=== PATIENT | male | born 1980 | race Caucasian/White ===

== ENCOUNTER 2017-04-22 10:39 | Emergency (ER) | payer OTHER ==
[2017-04-22 10:39] VITALS: BMI 42.3
[2017-04-22 10:45] VITALS: RESP 16; TEMP 99.1
[2017-04-22] MEDS ORDERED: Oxycodone/Acetaminophen 5/325 mg Tab PO STA (11:29)
--- NOTE | 2017-04-22 12:05 | ED PDOC ---
Arrival/HPI - General Chief Complaint: Back Pain Time Seen by Provider: 04/22/17 11:29 Historian: Patient - History of Present Illness Narrative History of Present Illness (Text): 04/22/17 12:09 36-year-old male presents today with low back pain status post injury. Patient states he was helping his sister move and he was carrying a heavy dresser and the person who was helping him carry slipped and he took all of the weight of the dresser. Patient describes a pulling sensation in the right flank radiating across the low back. He denies bladder or bowel incontinence. Patient rates the pain as an 8 out of 10. Patient states he took Flexeril and Motrin yesterday without improvement. He denies numbness weakness or tingling in the lower extremities. He denies fevers or chills. No abdominal pain. No nausea or vomiting. Denies dysuria or urinary frequency. No other complaints Symptom Onset: Gradual Symptom Course: Unchanged Quality: Aching, Tightness Severity Level: 8 Past Medical History - Provider Review Nursing Documentation Reviewed: Yes - Travel History Have you recently traveled outside [place] w/in the past 3 mons?: No - Infectious Disease Hx of Infectious Diseases: None - Tetanus Immunization Tetanus Immunization: Up to Date - Reproductive Currently : No Currently Lactating: No - Past Medical History Past Medical History: No Previous - Cardiac Hx Cardiac Disorders: No - Pulmonary Hx Respiratory Disorders: No - Neurological Hx Neurological Disorder: No - HEENT Hx HEENT Disorder: No - Renal Hx Renal Disorder: No - Endocrine/Metabolic Hx Diabetes Mellitus Type 2: Yes - Hematological/Oncological Hx Blood Disorders: No - Integumentary Hx Dermatological Disorder: No - Musculoskeletal/Rheumatological Hx Back Pain: Yes - Gastrointestinal Hx Gastrointestinal Disorders: No - Genitourinary/Gynecological Hx Genitourinary Disorders: No - Psychiatric Hx Psychophysiologic Disorder: No Hx Substance Use: No - Past Surgical History Past Surgical History: No Previous - Anesthesia Hx Anesthesia: No - Suicidal Assessment Feels Threatened In Home Enviroment: No Family/Social History - Physician Review Nursing Documentation Reviewed: Yes Family/Social History: Unknown Family HX Smoking Status: Light Smoker < 10 Cigarettes Daily Hx Alcohol Use: Yes Hx Substance Use: No Hx Substance Use Treatment: No Allergies/Home Meds Allergies/Adverse Reactions: Allergies No Known Allergies Allergy (Verified 04/22/17 10:41) Review of Systems - Review of Systems Constitutional: absent: Fatigue, Fevers Respiratory: absent: SOB, Cough Cardiovascular: absent: Chest Pain, Palpitations Gastrointestinal: absent: Abdominal Pain, Nausea, Vomiting Genitourinary Male: absent: Dysuria, Frequency, Hematuria Musculoskeletal: Back Pain. absent: Arthralgias, Neck Pain Skin: absent: Rash, Pruritis Neurological: absent: Headache, Dizziness Psychiatric: absent: Anxiety, Depression, Suicidal Ideation Physical Exam Vital Signs Reviewed: Yes Vital Signs Temp Pulse Resp BP Pulse Ox 04/22/17 12:30 64 16 133/72 99 04/22/17 10:44 99.1 F 65 16 137/79 97 Temperature: Afebrile Blood Pressure: Normal Pulse: Regular Respiratory Rate: Normal Appearance: Positive for: Well-Appearing, Non-Toxic, Comfortable Pain Distress: None Mental Status: Positive for: Alert and Oriented X 3 - Systems Exam Head: Present: Atraumatic Neck: Present: Normal Range of Motion Respiratory/Chest: Present: Clear to Auscultation, Good Air Exchange. No: Respiratory Distress, Accessory Muscle Use Cardiovascular: Present: Regular Rate and Rhythm, Normal S1, S2. No: Murmurs Abdomen: No: Tenderness Back: Present: Normal Inspection, Paraspinal Tenderness (RIGHT-SIDED PARASPINAL TENDERNESS OF THE LUMBAR SPINE AND THORACIC SPINE. LEFT SIDED PARASPINAL ). No : CVA Tenderness, Midline Tenderness Upper Extremity: Present: Normal ROM Lower Extremity: Present: Normal ROM Neurological: Present: GCS=15, Speech Normal, Motor Func Grossly Intact, Normal Sensory Function, Gait Normal Skin: Present: Warm, Dry, Normal Color. No: Rashes Psychiatric: Present: Alert, Oriented x 3 Medical Decision Making ED Course and Treatment: 04/22/17 12:14 Patient nontoxic well-appearing in no distress with stable vital signs. toradol, flexeril, percocet given po Patient reassessment: Feeling better with medications ambulating with a steady gait. Muscle strength 5 out of 5 bilaterally. I advised to followup with the orthopedist within the next 2 days. Return if symptoms worsen persist or new symptoms develop Patient verbalizes understanding of discharge instructions and need for immediate followup. Impression: Back pain Motrin every 6 hours as needed for pain Flexeril one tablet every 8 hours as needed for muscle spasms: May cause drowsiness Percocet; one tablet every 6 hours as needed for moderate to severe pain: May cause drowsiness Followup with the orthopedist within the next 2 days Followup with primary care physician within the next 2 days Return if symptoms worsen persist or if new symptoms develop - Medication Orders Current Medication Orders: Discontinued Medications Cyclobenzaprine HCl (Flexeril) 10 mg PO STAT STA Stop: 04/22/17 11:30 Last Admin: 04/22/17 11:45 Dose: 10 mg Ketorolac Tromethamine (Toradol) 60 mg IM STAT STA Stop: 04/22/17 11:30 Last Admin: 04/22/17 11:45 Dose: 60 mg Oxycodone/Acetaminophen (Percocet 5/325 Mg Tab) 1 tab PO STAT STA Stop: 04/22/17 11:30 Last Admin: 04/22/17 11:45 Dose: 1 tab Disposition/Present on Arrival - Present on Arrival Any Indicators Present on Arrival: No History of DVT/PE: No History of Uncontrolled Diabetes: No Urinary Catheter: No History of Decub. Ulcer: No History Surgical Site Infection Following: None - Disposition Have Diagnosis and Disposition been Completed?: Yes Diagnosis: Back pain Disposition: HOME/ ROUTINE Disposition Time: 12:06 Patient Plan: Discharge Condition: GOOD Discharge Instructions (ExitCare): Acute Low Back Pain (ED) Additional Instructions: Motrin every 6 hours as needed for pain Flexeril one tablet every 8 hours as needed for muscle spasms: May cause drowsiness PERCOCET; one tablet every 6 hours as needed for moderate to severe pain: May cause drowsiness Followup with the orthopedist within the next 2 days Followup with primary care physician within the next 2 days Return if symptoms worsen persist or if new symptoms develop Prescriptions: Cyclobenzaprine [Cyclobenzaprine HCl] 10 mg PO Q8 #10 tab Ibuprofen [Motrin] 600 mg PO Q6H PRN #20 tab PRN Reason: pain/fever reduction oxyCODONE/Acetaminophen [Percocet 5/325 mg Tab] 1 tab PO Q6H PRN #6 tab PRN Reason: moderate to severe pain Referrals: Umer Patel MD [Staff Provider] - Follow up with primary Forms: WORK NOTE
[2017-04-22 12:32] VITALS: BP 133/72; PULSE 64; O2SAT 99
== END 2017-04-22 12:30 | disposition home or self-care (01) ==
LOC: ED 10:39
DX: M54.5 Low back pain (principal)
CPT/HCPCS: 96372; 99282; J1885